=== PATIENT | female | born 1990 | race Two or more races ===

== ENCOUNTER 2018-06-18 10:13 | Emergency (ER) | payer MEDICAID ==
[~2018-06-18] VITALS: Ht 160 cm; Wt 70.5 kg
[2018-06-18 10:52] LABS: BASOPHILS % (AUTO) 0.5 % (0.0-2.0); EOSINOPHILS % (AUTO) 2.7 % (1.0-6.0); HEMOGLOBIN 12.9 g/dL (12.0-16.0); LYMPHOCYTES # (AUTO) 1.6 K/uL (1.0-4.8); LYMPHOCYTES % (AUTO) 29.9 % (22.0-44.0); MEAN CORPUSCULAR HEMOGLOBIN 28.3 pg (26.0-34.0); MEAN CORPUSCULAR HGB CONC 33.9 G/dL (31.0-37.0); MEAN CORPUSCULAR VOLUME 83 fL (80-100); MONOCYTES # (AUTO) 0.3 K/uL (0.1-1.0); MONOCYTES % (AUTO) 6.2 % (2.0-9.0); NEUTROPHILS # (AUTO) 3.2 K/uL (1.8-7.7); NEUTROPHILS % (AUTO) 60.7 % (40.0-70.0); PLATELET COUNT (AUTO) 226 K/uL (150-450); RED BLOOD CELL COUNT(AUTO) 4.56 MIL/uL (4.00-5.20)
[2018-06-18 11:29] VITALS: BP 146/80
== END 2018-06-18 12:01 | disposition home or self-care (01) ==
LOC: EMS 10:15
DX: N93.8 Other specified abnormal uterine and vaginal bleeding (principal); N97.0 Female infertility associated with anovulation
CPT/HCPCS: 99284

== ENCOUNTER 2018-08-27 09:24 | Emergency (ER) | payer MEDICAID ==
[~2018-08-27] VITALS: Ht 160 cm; Wt 68.2 kg
[2018-08-27 12:30] VITALS: BP 140/79
== END 2018-08-27 12:43 | disposition home or self-care (01) ==
LOC: EMS 09:25
DX: S93.402A Sprain of unspecified ligament of left ankle, initial encounter (principal); X50.1XXA Overexertion from prolonged static or awkward postures, initial encounter; Y93.89 Activity, other specified; Y92.89 Other specified places as the place of occurrence of the external cause; Y99.8 Other external cause status
CPT/HCPCS: 29515